=== PATIENT | female | born 1970 | race Caucasian/White ===

== ENCOUNTER 2017-04-18 19:39 | Emergency (ER) | payer BC ==
[~2017-04-18] VITALS: Ht 175.3 cm; Wt 166.0 kg
[2017-04-18] MEDS ORDERED: IV NORMAL SALINE 1000ML BAG 1,000 ML IV SCH (20:01)
[2017-04-18] MEDS ORDERED: IOHEXOL 300 MG/ML 75 ML VIAL IV ONE (20:15)
[2017-04-18] MEDS ORDERED: CONTRAST GIVEN MC PRN (20:15)
--- NOTE | 2017-04-18 20:16 | ED.ADGEN ---
Past Medical History Past Medical History: Anxiety, Hypertension, Migraines Past Surgical History: Cholecystectomy, Other Additional Past Surgical Histo: novasure Alcohol Use: Rarely Drug Use: None Adult General Chief Complaint Chief Complaint: HEMORRHOIDS HPI HPI Patient is a 46 year old woman, history of anxiety, hypertension, migraine headache, who presents to the emergency department with a complaint of rectal plane and bleeding. Patient states that she expressing pain in the rectal area intermittently over the past year or so, states that over the past several days to week she is expressing increasing pain which has now become severe. She states she had to leave a family libertarian today for the April due to the severe pain she is expressing. She states she's been experiencing brownish yellowish drainage, she states she takes stool softeners daily to prevent constipation, has had no difficulty passing stool, no loss of bowel or bladder. Denies any urinary complaints, abdominal pain, any fevers or chills. She states that she has been trying to use medicated wipes and hemorrhoid cream without relief. She states that she can feel two "lumps" which are tender on her rectum , and as all of her home techniques a failed, she came to the ED for evaluation due to persistent pain. Patient is tearful in the emergency department. Review of Systems Review of Systems Constitutional: Denies fever or chills. [] Eyes: Denies change in visual acuity. [] HENT: Denies nasal congestion or sore throat. [] Respiratory: Denies cough or shortness of breath. [] Cardiovascular: Denies chest pain or edema. [] GI: Denies abdominal pain, nausea, vomiting, bloody stools or diarrhea. Rectal pain and drainage. : Denies dysuria. [] Musculoskeletal: Denies back pain or joint pain. [] Integument: Denies rash. [] Neurologic: Denies headache, focal weakness or sensory changes. [] Endocrine: Denies polyuria or polydipsia. [] Lymphatic: Denies swollen glands. [] Psychiatric: Denies depression or anxiety. [] Current Medications Current Medications Current Medications Medications (Trade) Dose Ordered Sig/Marivel Start Time Stop Time Status Last Admin Dose Admin Amoxicillin/ Clavulanate Potassium (Augmentin 875/ 125mg) 1 tab 1X ONCE 04/18/17 21:45 04/18/17 21:46 DC 04/18/17 21:48 1 TAB Fentanyl Citrate (Fentanyl 2ml Vial) 50 mcg PRN Q15MIN PRN 04/18/17 20:15 04/18/17 22:57 DC 04/18/17 21:24 50 MCG Info (Do NOT chart on this entry -- for MONITORING) 1 each PRN DAILY PRN 04/18/17 20:15 04/18/17 22:57 DC Iohexol (Omnipaque 300 Mg/ml) 75 ml 1X ONCE 04/18/17 20:15 04/18/17 20:16 DC 04/18/17 21:00 60 ML Lidocaine HCl (Glydo (Lidocaine) Jelly) 1 ronnell 1X ONCE 04/18/17 21:45 04/18/17 21:46 DC 04/18/17 21:48 1 RONNELL Sodium Chloride 1,000 ml @ 1,000 mls/hr Q1H 04/18/17 20:01 04/18/17 21:00 DC 04/18/17 20:28 1,000 MLS/HR Allergies Allergies Allergies Coded Allergies Type Severity Reaction Last Updated Verified No Known Drug Allergies 04/18/17 No Physical Exam Physical Exam Constitutional: Well developed, well nourished, no acute distress, non-toxic appearance. [] HENT: Normocephalic, atraumatic, bilateral external ears normal, oropharynx moist, no oral exudates, nose normal. [] Eyes: PERRLA, EOMI, conjunctiva normal, no discharge. [] Neck: Normal range of motion, no tenderness, supple, no stridor. [] Cardiovascular:Heart rate regular rhythm, no murmur, S1, S2, no rubs or gallops. [] Lungs & Thorax: Bilateral breath sounds clear to auscultation, no wheezing, rhonchi, rales. No chest wall crepitus or tenderness. [] Abdomen: Bowel sounds normal, obese, soft, no tenderness, no rebound, rigidity, no guarding, no masses, no pulsatile masses. [] Skin: Warm, dry, no erythema, no rash. [] Back: No tenderness, no CVA tenderness. [] Extremities: No tenderness, no cyanosis, no clubbing, ROM intact, no edema. [] Neurologic: Alert and oriented X 3, normal motor function, normal sensory function, no focal deficits noted. [] Psychologic: Affect normal, judgement normal, mood normal. [] Rectal examination: Patient with 2 small nonthrombosed hemorrhoids noted at the 4 o'clock position, patient with tenderness noted throughout the anterior portion of the rectum, no masses palpated, patient noted to have a small amount of yellowish discharge, which is not stool. Concern for. Material. No active bleeding. Current Patient Data Vital Signs Vital Signs Date Time Temp Pulse Resp B/P (MAP) Pulse Ox O2 Delivery O2 Flow Rate FiO2 04/18/17 22:30 82 116/57 (76) 99 Room Air 04/18/17 21:24 18 04/18/17 19:48 98.1 98.1 Lab Values Laboratory Tests Test 04/18/17 20:10 04/18/17 20:15 Urine Collection Type Unknown Urine Color Yellow Urine Clarity Clear Urine pH 5.5 Urine Specific [place] <=1.005 Urine Protein Negative mg/dL (NEG-TRACE) Urine Glucose (UA) Negative mg/dL (NEG) Urine Ketones (Stick) Negative mg/dL (NEG) Urine Blood Negative (NEG) Urine Nitrite Negative (NEG) Urine Bilirubin Negative (NEG) Urine Urobilinogen Dipstick 0.2 mg/dL (0.2 mg/dL) Urine Leukocyte Esterase Negative (NEG) Urine RBC 0 /HPF (0-2) Urine WBC 0 /HPF (0-4) Urine Squamous Epithelial Cells Few /LPF Urine Bacteria 0 /HPF (0-FEW) White Blood Count 9.8 x10^3/uL (4.0-11.0) Red Blood Count 5.23 x10^6/uL (3.50-5.40) Hemoglobin 13.2 g/dL (12.0-15.5) Hematocrit 41.3 % (36.0-47.0) Mean Corpuscular Volume 79 fL (79-100) Mean Corpuscular Hemoglobin 25 pg (25-35) Mean Corpuscular Hemoglobin Concent 32 g/dL (31-37) Red Cell Distribution Width 13.6 % (11.5-14.5) Platelet Count 224 x10^3/uL (140-400) Neutrophils (%) (Auto) 67 % (31-73) Lymphocytes (%) (Auto) 25 % (24-48) Monocytes (%) (Auto) 7 % (0-9) Eosinophils (%) (Auto) 0 % (0-3) Basophils (%) (Auto) 1 % (0-3) Neutrophils # (Auto) 6.6 x10^3uL (1.8-7.7) Lymphocytes # (Auto) 2.5 x10^3/uL (1.0-4.8) Monocytes # (Auto) 0.7 x10^3/uL (0.0-1.1) Eosinophils # (Auto) 0.0 x10^3/uL (0.0-0.7) Basophils # (Auto) 0.1 x10^3/uL (0.0-0.2) Sodium Level 139 mmol/L (136-145) Potassium Level 3.5 mmol/L (3.5-5.1) Chloride Level 102 mmol/L (98-107) Carbon Dioxide Level 27 mmol/L (21-32) Anion Gap 10 (6-14) Blood Urea Nitrogen 16 mg/dL (7-20) Creatinine 1.0 mg/dL (0.6-1.0) Estimated GFR (Cockcroft-Gault) 59.4 Glucose Level 94 mg/dL (70-99) Calcium Level 9.0 mg/dL (8.5-10.1) Laboratory Tests 04/18/17 20:15 Laboratory Tests 04/18/17 20:15 EKG EKG Not indicated. Radiology/Procedures Radiology/Procedures [][facility] [address] [place] [address] IMAGING REPORT Signed PATIENT: MARY TURNER ACCOUNT: [id number] : 1970 LOCATION: ER AGE: 46 SEX: F EXAM STATUS: REG ER ORD. PHYSICIAN: MAAME RAMIREZ DO REASON: Rectal pain/drainage PROCEDURE: CT PELVIS W/CONTRAST Examination: CT pelvis with contrast HISTORY: History of hemorrhoids, rectal pain, rectal drainage COMPARISON: None available TECHNIQUE: Axial CT images of the pelvis were performed with IV contrast. Coronal and sagittal reformats are performed. Exposure: One or more of the following individualized dose reduction techniques were utilized for this examination: 1. Automated exposure control 2. Adjustment of the mA and/or kV according to patient size 3. Use of iterative reconstruction technique FINDINGS: Exam is very limited due to patient body habitus which causes artifact. The urinary bladder is mildly distended. The visualized uterus, adnexa grossly appears unremarkable. Feces and gas noted in the colon. Feces and gas noted in the rectum. Grossly, no obvious focal fluid collection identified in the perirectal region to suggest abscess. No evidence of lytic bony destructive lesion. IMPRESSION: 1. Very limited examination due to patient body habitus. Grossly no acute findings. Electronically signed by: Fletcher Oliva MD (04/18/2017 9:22 PM) DICTATED and SIGNED BY: FLETCHER OLIVA MD DATE: 04/18/172116 CC: MAAME RAMIREZ DO; UNKNOWN PCP NAME ~ Course & Med Decision Making Course & Med Decision Making Pertinent Labs and Imaging studies reviewed. (See chart for details) Patient with rectal tenderness, no masses palpated, noted to have some light brownish yellow discharge, concern for possible rectal abscess, although I cannot visualize any abscess or significant pathology aside from [address] of the pelvis obtained, not reveal evidence of large abscesses or fluid collections. Patient's laboratory studies were unremarkable. Patient received analgesia in the emergency department, and also rectal lidocaine, with good effect, is resting comfortably on my reevaluation. I discussed signs and patient, with which she voiced relief. Discussed with patient that although there is no evidence of a abscess, due to concern for possible infection, will treat with antibiotics, starting with a dose of Augmentin in the emergency department, and additional 5 days of treatment. Patient is agreeable this plan, she is feeling better at this time as stated, we discussed side effects and usage of medications. Patient is prone to yeast infections when taking antibiotics, therefore Diflucan prescription was also provided. Additionally, I recommend the patient use Anusol HC, she was written a prescription for the suppositories for comfort. Discussed follow-up with Dr. Mistry of general surgery for additional evaluation. We discussed concerning symptoms that prompt return to the ED. Patient voiced understanding and agreement with plan as stated, discharged home in stable condition with plan, prescriptions, and precautions as above. Dragon Disclaimer Dragon Disclaimer This electronic medical record was generated, in whole or in part, using a voice recognition dictation system. Departure Impression: Primary Impression: Rectal pain Disposition: HOME, SELF-CARE Condition: IMPROVED Scripts Fluconazole (DIFLUCAN) 150 Mg Tablet 1 TAB PO ONCE Y for YEAST INFECTION, #1 TAB 1 Refill Take one pill a by mouth as needed if symptoms of yeast infection develop. If symptoms persist more than 48 hours after first dose, please take the second dose. Prov: ASHLEYMAAME DO 04/18/17 Amoxicillin/Potassium Clav (AUGMENTIN 875-125 TABLET) 1 Each Tablet 1 TAB PO BID, #10 TAB Prov: MAAME RAMIREZ DO 04/18/17 Hydrocortisone Acetate (ANUSOL-HC) 25 Mg Supp.rect 1 SUPP RC BID Y for PAIN, #14 SUPP Prov: MAAME RAMIREZ DO 04/18/17 Departure Departure Impression: Primary Impression: Rectal pain Disposition: HOME, SELF-CARE Condition: IMPROVED Scripts Fluconazole (DIFLUCAN) 150 Mg Tablet 1 TAB PO ONCE Y for YEAST INFECTION, #1 TAB 1 Refill Take one pill a by mouth as needed if symptoms of yeast infection develop. If symptoms persist more than 48 hours after first dose, please take the second dose. Prov: ASHLEYSILVANAMAAME M DO 04/18/17 Amoxicillin/Potassium Clav (AUGMENTIN 875-125 TABLET) 1 Each Tablet 1 TAB PO BID, #10 TAB Prov: MAAME RAMIREZ DO 04/18/17 Hydrocortisone Acetate (ANUSOL-HC) 25 Mg Supp.rect 1 SUPP RC BID Y for PAIN, #14 SUPP Prov: MAAME RAMIREZ DO 04/18/17 MAAME RAMIREZ DO Apr 18, 2017 20:16
[2017-04-18] MEDS: fentaNYL PF VIAL 100 MCG/2 ML VIAL IV PRN ×2 (20:28→21:24)
[2017-04-18 20:31] LABS: BASO # 0.1 x10^3/uL (0.0-0.2); BASO % 1 % (0-3); EOS % 0 % (0-3); HEMATOCRIT 41.3 % (36.0-47.0); HEMOGLOBIN 13.2 g/dL (12.0-15.5); LYMPH # 2.5 x10^3/uL (1.0-4.8); LYMPH % 25 % (24-48); MEAN CORPUSCULAR HEMOGLOBIN 25 pg (25-35); MEAN CORPUSCULAR HGB CONC 32 g/dL (31-37); MEAN CORPUSCULAR VOLUME 79 fL (79-100); MONO % 7 % (0-9); NEUT % 67 % (31-73); PLATELET COUNT 224 x10^3/uL (140-400); RED BLOOD COUNT 5.23 x10^6/uL (3.50-5.40); RED CELL DISTRIBUTION WIDTH 13.6 % (11.5-14.5); WHITE BLOOD COUNT 9.8 x10^3/uL (4.0-11.0)
[2017-04-18 20:38] LABS: BILIRUBIN,URINE NEGATIVE (NEG); GLUCOSE,URINE NEGATIVE (NEG); NITRITE,URINE NEGATIVE (NEG); PH,URINE 5.5; PROTEIN,URINE NEGATIVE (NEG-TRACE); UROBILINOGEN,URINE 0.2 mg/dL (0.2 mg/dL)
[2017-04-18 20:42] LABS: GFR 59.4; POTASSIUM 3.5 mmol/L (3.5-5.1)
[2017-04-18 20:51] LABS: BACTERIA,URINE 0 /HPF (0-FEW); RBC,URINE 0 /HPF (0-2); SQUAMOUS EPITHELIAL CELL,UR FEW /LPF; WBC,URINE 0 /HPF (0-4)
--- NOTE | 2017-04-18 21:25 | RAD ---
Examination: CT pelvis with contrast HISTORY: History of hemorrhoids, rectal pain, rectal drainage COMPARISON: None available TECHNIQUE: Axial CT images of the pelvis were performed with IV contrast. Coronal and sagittal reformats are performed. Exposure: One or more of the following individualized dose reduction techniques were utilized for this examination: 1. Automated exposure control 2. Adjustment of the mA and/or kV according to patient size 3. Use of iterative reconstruction technique FINDINGS: Exam is very limited due to patient body habitus which causes artifact. The urinary bladder is mildly distended. The visualized uterus, adnexa grossly appears unremarkable. Feces and gas noted in the colon. Feces and gas noted in the rectum. Grossly, no obvious focal fluid collection identified in the perirectal region to suggest abscess. No evidence of lytic bony destructive lesion. IMPRESSION: 1. Very limited examination due to patient body habitus. Grossly no acute findings. Electronically signed by: Fletcher Oliva MD (04/18/2017 9:22 PM)
[2017-04-18] MEDS ORDERED: LIDOCAINE 2% JELLY 6ML IN APPLICATOR. MM ONE (21:45)
[2017-04-18] MEDS ORDERED: AMOXICILLIN/K CLAV 875/125MG TABLET. PO ONE (21:45)
[2017-04-18] MEDS ORDERED: HYDR25SU18 RC (21:59)
[2017-04-18] MEDS ORDERED: AMOX1TAB61 PO ×2 (21:59→22:04)
[2017-04-18 22:30] VITALS: BP 116/57
[2017-04-18] MEDS ORDERED: FLUC150T PO (22:43)
== END 2017-04-18 22:51 | disposition home or self-care (01) ==
LOC: ER 19:39
DX: K62.89 Other specified diseases of anus and rectum (principal); K62.5 Hemorrhage of anus and rectum; I10 Essential (primary) hypertension; G43.909 Migraine, unspecified, not intractable, without status migrainosus; Z90.49 Acquired absence of other specified parts of digestive tract
CPT/HCPCS: 36415; 74170; 80048; 81001; 85027; 96361; 96374; 96376; 99285; J3010; J7030; Q9967

== ENCOUNTER → 2017-06-16 | Day surgery (SDC) | payer BC ==
[~2017-06-16] MED LIST: AMOX1TAB61 PO; FLUC150T PO; HYDR-2762 PO; HYDR25SU18 RC; IV RINGERS,LACTATED 1000ML 1,000 ML IV SCH; LIDOCAINE 1% 1 ML SYRINGE. ID PRN; LISI1TAB5 PO; LORA2TAB PO; MIDAZOLAM HCL/PF 2 MG/2 ML VIAL. IV PRN; PROPOFOL 40 ML IV ONE; SUMA50TA3 PO; fentaNYL PF VIAL 100 MCG/2 ML VIAL IV PRN
[2017-06-16 11:35] VITALS: BP 136/66
--- NOTE | 2017-06-20 15:42 | PATHOLOGY ---
PATHOLOGY REPORT * * * * * * * * FINAL DIAGNOSIS: A. Rectum, biopsy: - Hyperplastic polyps, two. B. Colon, descending, biopsy: - Adenomatous polyp, three fragments. C. Colon, sigmoid, biopsy: - Tubulovillous adenoma, 1.3 cm (SKM:mml; 06/20/2017) REPORT ELECTRONICALLY SIGNED BY: Zaire Cervantes M.D. DATE/TIME: 06/20/2017 15:41 * * * * * * * * GROSS PATHOLOGY: A. Received in formalin labeled "Mary Turner, rectal polyp," are two segments of tran soft tissue, each measuring 0.1 cm in maximum dimension. The specimen is submitted entirely in cassette A1. B. Received in formalin labeled "descending colon polyp," are three segments of tran soft tissue measuring from 0.4 and 0.6 cm in maximum dimension. The specimen is submitted entirely in cassette B1. C. Received in formalin labeled "sigmoid colon polyp," are 4 segments of tran soft tissue measuring from 0.1 up to 1.3 cm in maximum dimension. The base of the largest segment is inked, and this segment is bisected. The specimen is submitted entirely in cassette C1. (JPM; 06/16/17) INITIAL CPT CODE(S): A; 33242 B; 01557 C; 46992 Professional services performed [place] [address] Technical services performed by [facility] at [address] [place] [address]. SPECIMEN(S) RECEIVED: A.Rectal polyp B.Descending colon polyps C.Sigmoid colon polyp CLINICAL HISTORY: Rectal bleeding, possible fistula PATIENT: MARY TURNER R /AGE: 1 1970 (Age: 46) PATIENT #: [id number] CASE #: SPECIMEN COLLECTION DATE: 06/16/2017 SPECIMEN RECEIVED DATE: 06/16/2017 [facility] - [address] [place] [address] - PHONE: [phone] * * * END OF REPORT * * *
== END | disposition home or self-care (01) ==
LOC: ENDOS 08:56
PROVIDERS: ATTEND Internal Medicine Gastroenterology
DX: K64.0 First degree hemorrhoids (principal); K62.1 Rectal polyp; K63.5 Polyp of colon; I10 Essential (primary) hypertension; M19.91 Primary osteoarthritis, unspecified site; F32.9 Major depressive disorder, single episode, unspecified; F41.9 Anxiety disorder, unspecified; D64.9 Anemia, unspecified; Z90.49 Acquired absence of other specified parts of digestive tract
CPT/HCPCS: 45380; 45385; J2704

== ENCOUNTER → 2017-07-06 | Outpatient (CLI) | payer BC ==
[2017-06-16 11:35] VITALS: BP 136/66
[~2017-07-06] MED LIST changes: +BARIUM SULFATE 60% 355 ML SUSP PO ONE; -IV RINGERS,LACTATED 1000ML 1,000 ML IV SCH; -LIDOCAINE 1% 1 ML SYRINGE. ID PRN; -MIDAZOLAM HCL/PF 2 MG/2 ML VIAL. IV PRN; -PROPOFOL 40 ML IV ONE; -fentaNYL PF VIAL 100 MCG/2 ML VIAL IV PRN
--- NOTE | 2017-07-06 15:33 | KCIC ---
Small bowel follow-through study 07/06/2017 CLINICAL HISTORY: Abdominal pain with constipation. TECHNIQUE: A small bowel follow-through study was performed under radiographic and delayed fluoroscopic control. The total fluoroscopic time for this study was 33 seconds. A single digital spot radiograph of the terminal ileum was obtained. FINDINGS: Comparison is made to patient's CT scan of the pelvis dated 04/18/2017. Two AP supine digital radiographs of the abdomen to include the pelvis were obtained as a behavioral specialist. They demonstrates a nonobstructive bowel gas pattern. Degenerative changes are seen predominantly at L5-S1 and involving both hips. Calcifications are seen within the pelvis consistent phleboliths. The mucosal pattern of the duodenum, jejunum, ileum and terminal ileum is within normal limits. The small bowel transit time is within normal limits. The cecum is seen is in its normal location within the right lower quadrant of the abdomen. No small bowel wall thickening is seen. No fistula is noted. No extrinsic mass effect upon the small intestine is seen. IMPRESSION: Negative study. Electronically signed by: Froylan Cardozo MD (07/06/2017 3:30 PM) [facility]-[id number]
== END | disposition home or self-care (01) ==
LOC: KCIC 07:44
PROVIDERS: ATTEND Internal Medicine Gastroenterology
DX: K59.00 Constipation, unspecified (principal); I87.8 Other specified disorders of veins
CPT/HCPCS: 74250

== ENCOUNTER → 2017-07-06 | Outpatient (CLI) | payer BC ==
[2017-06-16 11:35] VITALS: BP 136/66
[~2017-07-06] MED LIST changes: -BARIUM SULFATE 60% 355 ML SUSP PO ONE
--- NOTE | 2017-07-06 10:47 | KCIC ---
MRI of the lumbar spine without contrast 07/06/2017 CLINICAL HISTORY: Low back pain which radiates down the right leg for a few weeks. TECHNIQUE: Unenhanced T1-weighted and T2-weighted sagittal and axial and inversion recovery sagittal images the lumbar spine were obtained. FINDINGS: Very mild S-shaped curvature of the thoracolumbar spine is seen. Degenerative signal changes are seen involving the L3-4, L4-5 and L5-S1 discs. Degenerative signal changes are seen within the marrow surrounding these discs. Loss of height of the L5-S1 disc is noted. A 1.2 cm hemangioma is seen involving the L3 vertebral body. The conus medullaris is normal morphology, position, and signal characteristics. At the L1-2, L2-3 and L3-4 disc spaces there are minimal to mild generalized disc bulges. Degenerative changes are seen involving the facet joints bilaterally. There is mild ligamentum flavum hypertrophy bilaterally. These findings when combined do not result in significant central spinal canal or neural foraminal stenosis. At the L4-5 disc space there is a mild generalized disc bulge. Superimposed on this disc bulge is a focal central disc protrusion. This measures 2 mm in AP diameter. Degenerative changes are seen involving the facet joints bilaterally. There is mild to moderate ligamentum flavum hypertrophy bilaterally. These findings when combined do not result in significant central spinal canal or neural foraminal stenosis. At the L5-S1 disc space there is a mild generalized disc bulge. Superimposed on this disc bulge is a central/left paracentral focal disc herniation. This measures 5 mm in AP diameter. Degenerative changes are seen involving the facet joints bilaterally. There is mild ligamentum flavum hypertrophy bilaterally. These findings when combined result in mild left greater than right central spinal canal stenosis. The disc herniation displaces the left S1 nerve root posteriorly within the left aspect of the central spinal canal. No neural foraminal stenosis is seen. IMPRESSION: The changes of degenerative disc disease are seen throughout the lumbar spine. These findings result in mild left greater than right central spinal canal stenosis at L5-S1. A central/left paracentral focal disc herniation sy L5-S1 displaces the left S1 nerve root posteriorly within the left aspect central spinal canal as outlined above. Electronically signed by: Froylan Cardozo MD (07/06/2017 10:44 AM) [facility]-[id number]
== END | disposition home or self-care (01) ==
LOC: KCIC MRI 07:44
PROVIDERS: ATTEND Physician Assistant Surgical
DX: M51.36 Other intervertebral disc degeneration, lumbar region (principal); M48.07 Spinal stenosis, lumbosacral region; M51.27 Other intervertebral disc displacement, lumbosacral region
CPT/HCPCS: 72148

== ENCOUNTER → 2017-12-22 | Outpatient (CLI) | payer BC ==
[2017-12-22] MEDS: GADOBUTROL 7.5 MMOL/7.5 ML VIAL IV ×2 (16:10)
== END | disposition home or self-care (01) ==
LOC: KCIC MRI 14:58
DX: G93.0 Cerebral cysts (principal); R51 Headache
CPT/HCPCS: 70553; A9585

== ENCOUNTER → 2018-06-15 | Outpatient (CLI) | payer BC ==
[2017-06-16 11:35] VITALS: BP 136/66
[~2018-06-15] MED LIST changes: +DICL100G18 TP; +HYDR-2758 PO; +HYDR-2766 PO; +IOHEXOL 180 MG/ML 10 ML VIAL. ONE; +LIDOCAINE 2% PF 2ML VIAL. ONE; +methylPREDNISolone ACETATE 40 MG/ML VIAL. ONE; +methylPREDNISolone ACETATE 80 MG/ML VIAL. ONE
--- NOTE | 2018-06-16 05:59 | PAIN ---
DATE OF SERVICE: 06/15/2018 INITIAL CONSULTATION FOR PAIN CLINIC CHIEF COMPLAINT: Low back and right lower extremity pain. HISTORY OF PRESENT ILLNESS: This is a 47-year-old female who presents with history of pain for several months, increasing, not a result of any specific injury or action she is aware of, but across the low back and into the right posterior gluteus, posterior thigh, posterior calf and into the foot with some numbness down the leg, significant cramping sensation in the low back when she is standing and a shocking electrical pain in the low back as well. The patient reports it is sharp, stabbing, throbbing, shooting, numbness radiating into the right leg, burning and cramping is noted. Wakes her from sleep about 2-3 times at night, does not affect her bowel or bladder control and does affect her ability to walk, however. The patient reports she has gained about 40 pounds and seems that the pain has gotten worse during this time. The patient has had physical therapy in February 2018 and March of 2018 as well as doing exercises and stretches and strengthening exercises from the therapy currently daily without significant improvement. The patient has been taking tramadol, tizanidine, hydrocodone and none of these have helped much significantly to decrease the pain. She did have an MRI scan dated June 2017 showing degenerative disk disease throughout the lumbar spine with mild left greater than right central spinal canal stenosis at L5-S1 and central left paracentral focal disk herniation at L5-S1 displacing the left S1 nerve root posteriorly within the left aspect of the central spinal canal. The patient rates her disability rate from 0-10, 10 being the worst, is a 9 with family and home responsibilities, 10 with recreation, occupation, self-care, 9 with life support activities, 8 with social activity. The patient reports no loss of motor function, but significant fatigability in the right leg with even standing for a few minutes, especially with walking, better with sitting or lying down, but again has been waking her from sleep about 2-3 times a night, especially if she lies on her right side. PAST MEDICAL HISTORY: Significant for obesity, hypertension, arthritis, headaches. PREVIOUS SURGERY: Includes cholecystectomy. CURRENT MEDICATIONS: Include lorazepam, lisinopril, hydrocodone and Voltaren. ALLERGIES: The patient has no known drug allergies. FAMILY HISTORY: Significant for cancers, heart disease, strokes and lumbar spine problems on her father's side. SOCIAL HISTORY: The patient does not drink alcohol, does not smoke, does not use any illegal, illicit or recreational drugs. She is single, has 3 children, living at home, lives locally in [place], [place]. REVIEW OF SYSTEMS: The patient's review of systems is positive for those items mentioned in the history of present illness. All systems reviewed and otherwise negative. It is complete, full and well documented on the patient's chart. PHYSICAL EXAMINATION: VITAL SIGNS: The patient's blood pressure is 171/98, pulse 81, respirations 18, temperature is 98.5 degrees Fahrenheit. Height is 5 feet 8 inches, weight is 408 pounds. GENERAL: The patient is awake, alert, oriented, appropriate, very pleasant demeanor. HEENT: Head shows normocephalic, atraumatic. Extraocular movements intact and symmetrical. Oral cavity: Mucous membranes moist and pink. Dentition is intact. NECK: Shows anterior throat supple without palpable lymphadenopathy noted. Swallow reflex is symmetrical. CHEST: Shows normal with inspection. Breath sounds clear to auscultation bilaterally. HEART: Shows S1, S2 clear. No murmurs auscultated. ABDOMEN: Obese, soft, nontender, nondistended. No palpable organomegaly. There is no rebound or guarding demonstrated. BACK: Shows spine grossly in the midline. Slight exaggeration of thoracic kyphosis and minor flattening of lumbar lordotic curvature. Lumbar paraspinous muscle shows symmetrical on inspection, on palpation shows some moderate tenderness diffusely throughout the upper, middle and lower distribution of paraspinous muscles only diffusely without radiation, without trigger points. The patient has good rotational motion of lumbar spine both laterally as well as extension and flexion without difficulty. No tenderness over the sacrum or sacroiliac regions or the spinous processes with palpation. EXTREMITIES: The patient's lower extremities show deep tendon reflexes at 1+ in the patellar and tendo calcaneus tendons. Motor exam is approximately 4 on a scale of 5 with right dorsiflexion, extension, 5/5 on the left. Quadriceps and hamstring flexion 5/5 and equal. The patient does have a positive straight leg raise on the right at about 35 degrees, left is negative. Gaenslen's and Richard's maneuvers are negative bilaterally. Peripheral pulses are 1+ posterior tibial. Lower extremities are warm and dry to touch, equal in color and appearance. The patient is able to stand, has difficult to stand her toes as she loses balance with putting all of her weight on her right foot. The patient ambulates with a slight favoring gait favoring the right lower extremity, but not using any assistive devices to ambulate. SKIN: Warm and dry, good turgor. No edema. No sores, rashes or bruising. IMPRESSION: 1. This is a 47-year-old female with several-month history of increasing pain of low back and right lower extremity in a radicular fashion. 2. MRI scan of lumbar spine as noted. 3. Obesity. 4. Arthritis. 5. Hypertension. PLAN: Options were discussed with the patient including conservative medical management, physical therapy, interventional techniques and she likes to pursue interventional techniques. We discussed a lumbar epidural steroid injection using descriptions and anatomical models to describe the procedure. Risks were then discussed including, but not limited to bleeding, infection, possibility of epidural hematoma, subsequent neurologic compromise, dural puncture, headaches, spinal cord and/or nerve damage, side effects of steroid medication and poor results regarding pain control. The patient understands and wished to proceed. The patient will return to clinic in approximately 2 weeks for followup. She was counseled as to return appointment, activity level and side effects to be aware of. DIAGNOSES: Lumbar radiculopathy with lumbar spinal stenosis, lumbar degenerative disk disease and lumbar herniated disk. PROCEDURE: Lumbar epidural steroid injection, translaminar approach L5-S1 level using C-arm fluoroscopic guidance under sterile prep and drape using local anesthetic. MEDICATION INJECTED: A total of 120 mg of Depo-Medrol plus 10 mL of preservative-free normal saline and 2 mL of Isovue for contrast. CONDITION AT DISCHARGE: Stable. The patient tolerated the procedure well, had no complications. LAURA FUNES MD DR: MUKUL/marilu JOB#: [id number] / [id number] ODELL Beavers
== END | disposition home or self-care (01) ==
LOC: PNCL 09:02
PROVIDERS: ATTEND Anesthesiology
DX: M51.16 Intervertebral disc disorders with radiculopathy, lumbar region (principal); M48.061 Spinal stenosis, lumbar region without neurogenic claudication; I10 Essential (primary) hypertension; E66.9 Obesity, unspecified; M19.90 Unspecified osteoarthritis, unspecified site; Z90.49 Acquired absence of other specified parts of digestive tract; Z79.899 Other long term (current) drug therapy; Z82.49 Family history of ischemic heart disease and other diseases of the circulatory system; Z82.3 Family history of stroke
CPT/HCPCS: 62323; J1030; J1040; J2001; Q9965

== ENCOUNTER → 2018-07-10 | Outpatient (CLI) | payer BC ==
[2017-06-16 11:35] VITALS: BP 136/66
[~2018-07-10] MED LIST changes: +METH-38 PO
--- NOTE | 2018-07-10 11:58 | PAIN ---
DATE OF SERVICE: 07/10/2018 DIAGNOSES: Lumbar radiculopathy with lumbar degenerative disk disease with lumbar spinal stenosis and lumbar herniated disk. HISTORY OF PRESENT ILLNESS: The patient is a 47-year-old female who returns for followup status post lumbar epidural steroid injection x 1. The patient reports about 95% improvement for the first week or so. Then, the pain began to return in the low back and the right lower extremity, mostly in the posterior gluteus, posterior thigh, some in the posterior calf, but doing much better, still improved. The patient reports her worst pain is an 8 on a scale of 10, average is a 4, at its least is a 4, is a 4 today. The patient reports she was increasing her household activity, doing everything she wanted, people around her noticing that she was acting normal. Again, she was very pleased with that. The patient reports she has been sleeping well at night, occasionally awakens her up from sleep just over the past few days, but only occasionally, not every night, but she can reposition and get back to sleep. The patient reports no new motor or sensory deficits, no new bowel or bladder incontinence or other complaints. The patient reports pain is sharp, shooting, tingling, cramping on and off in intensity in the leg. PHYSICAL EXAMINATION: VITAL SIGNS: The patient's blood pressure 131/69, pulse 68, respirations 18, temperature is 98.4 degrees Fahrenheit, height is 5 feet 7 inches, weight is 408 pounds. GENERAL: The patient is awake, alert, oriented, appropriate, very pleasant demeanor. HEENT: Head shows normocephalic, atraumatic. Extraocular movements are intact, symmetrical. Oral cavity: Mucous membranes moist and pink. Dentition is intact. NECK: Shows anterior throat supple without palpable lymphadenopathy noted. Swallow reflex is symmetrical. CHEST: Shows normal on inspection. Breath sounds clear to auscultation bilaterally. HEART: Shows S1, S2 clear. No murmurs auscultated. ABDOMEN: Soft, nontender, nondistended. No palpable organomegaly is noted. No rebound or guarding demonstrated. BACK: Shows spine grossly in the midline. Slight exaggeration of thoracic kyphosis and minor flattening of lumbar lordotic curvature. Lumbar paraspinous musculature show symmetrical on inspection with palpation shows some moderate tenderness but only diffusely in the low lumbar distribution, more on the right than the left. The patient has good rotational motion both laterally as well as extension and flexion without significant difficulty. EXTREMITIES: Lower extremities show deep tendon reflexes at 1+ in the patella and tendo calcaneus tendons and equal motor. She has approximately 4 on a scale of 5 right dorsiflexion and extension, 5/5 left dorsiflexion and extension. Peripheral pulses are 1+ posterior tibial. No peripheral edema is noted bilaterally. Options were discussed with the patient. The patient's old chart was reviewed as her current medication regimen and updated. Current review of systems is updated today as well. We will proceed with a second in the series of lumbar epidural steroid injection today with fluoroscopic guidance. Risks were again discussed including, but not limited to bleeding, infection, possibility of epidural hematoma, subsequent neurological compromise, dural puncture, headaches, spinal cord and/or nerve damage, side effects of steroid medication and poor results regarding pain control. The patient understands and wished to proceed. The patient to return to clinic in approximately 2 weeks for followup. She was counseled to return appointment, activity level and side effects to be aware of. DIAGNOSIS: Lumbar radiculopathy with lumbar degenerative disk disease with lumbar spinal stenosis and lumbar herniated disk. PROCEDURE: Lumbar epidural steroid injection, translaminar approach at the L5-S1 level using C-arm fluoroscopic guidance under sterile prep and drape using local anesthetic. MEDICATION INJECTED: A total of 120 mg Depo-Medrol plus 10 preservative-free normal saline and 2 mL of Isovue for contrast. CONDITION AT DISCHARGE: Stable. The patient tolerated the procedure well, had no complications. LAURA FUNES MD DR: MUKUL/marilu JOB#: [id number] / [id number]
== END | disposition home or self-care (01) ==
LOC: PNCL 08:08
PROVIDERS: ATTEND Anesthesiology
DX: M51.16 Intervertebral disc disorders with radiculopathy, lumbar region (principal); M48.061 Spinal stenosis, lumbar region without neurogenic claudication
CPT/HCPCS: 62323; J1030; J1040; J2001; Q9965